=== PATIENT | female | born 1935 | race Caucasian/White ===

== ENCOUNTER 2016-09-28 21:45 | Emergency (ER) | payer OTHER ==
--- NOTE | 2016-09-28 21:53 | ED.PDOC ---
General ED Provider: Dr. GILES FOX Chief Complaint: Altered Mental Status Stated Complaint: Patient was at latter-day, not been by herself. she had similar episode couple days ago, was seen @ [facility]. had heart cath last week. Time Seen by Physician: 21:51 Information Source: Patient Primary Care Provider: SHON LOVE Nursing and Triage Documentation Reviewed and Agree: Yes Neurological Complaint Exam - Altered Mental Status Complaint/Exam Current Mental Status: Confusion Onset: Gradual Symptoms Are: Still present Timing: Constant Episodes Lasting: Minutes Initial Severity: Moderate Current Severity: Moderate Eye Deviation Present: No Character: Reports: Confusion, Responsiveness, Lethargy Aggravating: Reports: None Alleviating: Reports: None Associated Signs and Symptoms: Reports: Weakness. Denies: Dizziness, Headache, Fever, Illness, Nuchal rigidity, Seizure, Nausea, Vomiting, Recently depressed, Trauma Related History: Reports: Similar episode Cardiac Risk Factors: Reports: Hypertension, CAD CVA Risk Factors: Reports: Hypertension, CAD Related Surgical History: Reports: None Carotid Bruit Present: No Nystagmus Present: No Gag Reflex Present: No Meningeal Signs Positive: No Focal Weakness: Present: RLE, LLE Gait: Unable [id number]: Abnormal right, Abnormal left Heel to Toe Normal: No Differential Diagnoses: Metabolic Disorder, Medication reaction, Sepsis, CVA Review of Systems - Review Of Systems Constitutional: Reports: Malaise, Weakness Eyes: Reports: No symptoms Ears, Nose, Mouth, Throat: Reports: No symptoms Respiratory: Reports: No symptoms Cardiac: Reports: No symptoms GI: Reports: No symptoms : Reports: No symptoms Musculoskeletal: Reports: No symptoms Skin: Reports: No symptoms Neurological: Reports: Weakness Endocrine: Reports: No symptoms Hematologic/Lymphatic: Reports: No symptoms All Other Systems: Reviewed and Negative Past Medical History - Past Medical History Previously Healthy: No Endocrine: Reports: None Cardiovascular: Reports: Hypertension Respiratory: Reports: COPD Hematological: Reports: None Gastrointestinal: Reports: GERD Genitourinary: Reports: None Neuro/Psych: Reports: None, Other (bells palsy) Musculoskeletal: Reports: Arthritis, Back Pain Cancer: Reports: None - Surgical History General Surgical History: Reports: Hysterectomy, Tubal ligation, Tonsillectomy, Orthopedic (bilateral knee arthoplasty dr carranza 2011), Other (heart cath 2011 ) - Family History Family History: Reports: None Physical Exam - Physical Exam Appearance: Ill-appearing, Obese Ill-appearing: Moderate Eyes: EOMI, Conjunctiva clear ENT: Ears normal, Nose normal, Oropharynx normal Respiratory: Airway patent, Breath sounds clear, Breath sounds equal, Respirations nonlabored Cardiovascular: RRR, Pulses normal, No rub, No murmur GI/: Soft, Nontender, No masses, Bowel sounds normal, No Organomegaly Musculoskeletal: Normal strength, ROM intact, No edema, No calf tenderness Skin: Warm, Dry, Normal color Neurological: Sensation intact, Disoriented, Focal Deficit (weak lower extremities) Psychiatric: Affect appropriate, Mood appropriate Interpretation - Radiology Interpretation Radiology Interpretation By: Radiologist Radiology Results: Negative Exam Interpreted: CT Scan - EKG Interpretation Time of EKG #1: 21:50 Rate: Normal Rhythm: Sinus Ectopy: None [place]: Left ST Segment: Other (LBBB) Re-Evaluation - Re-Evaluation Time of Re-Evaluation: 00:08 Status: Unchanged Critical Care Note - Critical Care Note Total Time (mins): 0 Course - Course Hematology/Chemistry: 09/28/16 21:54 09/28/16 21:54 Orders, Labs, Meds: Lab Review 09/28/16 09/28/16 09/29/16 21:54 22:00 00:00 WBC 11.82 H RBC 5.66 H Hgb 15.2 Hct 48.3 H MCV 85.3 MCH 26.9 L MCHC 31.5 L RDW Coeff of Alanis 15.0 H Plt Count 299 Immature Gran % (Auto) 0.8 Neut % (Auto) 76.3 Lymph % (Auto) 16.4 [place] % (Auto) 5.5 Eos % (Auto) 0.6 Baso % (Auto) 0.4 Immature Gran # (Auto) 0.1 Neut # 9.0 H Lymph # 1.9 [place] # 0.7 Eos # 0.1 Baso # 0.1 D-Dimer 2.38 Sodium 141 Potassium 4.6 Chloride 97 L Carbon Dioxide 30 Anion Gap 18.6 BUN 37 H Creatinine 1.46 H Estimated GFR (MDRD) 35.00 BUN/Creatinine Ratio 25.34 Glucose 143 H Calcium 10.3 H Total Bilirubin 0.50 AST 16 ALT 18 Alkaline Phosphatase 85 Total Creatine Kinase 17 Troponin I 0.0370 Total Protein 8.3 H Albumin 3.8 Globulin 4.5 Albumin/Globulin Ratio 0.84 Urine Color Yellow Urine Clarity Clear Urine pH 5.0 Ur Specific [place] 1.025 Urine Protein 1+ Urine Glucose (UA) Negative Urine Ketones Trace Urine Blood Negative Urine Nitrite Negative Urine Bilirubin Negative Urine Urobilinogen 0.2 Ur Leukocyte Esterase Negative Ur Squamous Epith Cells 10-20 Amorphous Sediment 3+ Urine Bacteria 1+ Hyaline Casts 5-10 Granular Casts 2-5 Orders Category Date Time Status ABG DRAW REQUEST Stat CARDIO 09/29/16 00:49 Ordered ABG DRAW REQUEST Stat CARDIO 09/29/16 00:49 Ordered EKG-(ED ONLY) Stat CARDIO 09/28/16 21:49 Ordered NEBULIZER TREATMENT Stat CARDIO 09/29/16 00:49 Ordered O2 [ED APPLY O2] .ONCE EMERGENCY 09/29/16 00:50 Active CBC W/ AUTO DIFF Stat LAB 09/28/16 21:54 Completed COMPREHENSIVE METABOLIC PANEL Stat LAB 09/28/16 21:54 Completed CREATINE KINASE Stat LAB 09/28/16 21:54 Completed D-DIMER Stat LAB 09/29/16 00:00 Completed TROPONIN I Stat LAB 09/28/16 21:54 Completed URINALYSIS C & S IF INDICATED Stat LAB 09/28/16 22:00 Completed URINE CULTURE Routine LAB 09/28/16 22:24 Received Dexamethasone 4 mg/ml Inj [Decadron 4 mg/ml Sdv] MEDS 09/29/16 00:49 Discontinued 4 mg IM ONCE STA Ipratropium/Albuterol Neb [Duoneb] MEDS 09/29/16 00:49 Discontinued 1 vial NEB ONCE STA CT HEAD W/O CONTRAST Stat RADS 09/28/16 21:[address] LUMBAR SPINE W/O CONTRAST Stat RADS 09/28/16 21:58 Completed Medications Discontinued Medications Generic Name Dose Route Start Last Admin Trade Name Freq PRN Reason Stop Dose Admin Albuterol/Ipratropium 1 vial 09/29/16 00:49 Duoneb NEB 09/29/16 00:50 ONCE STA Dexamethasone Sodium Phosphate 4 mg 09/29/16 00:49 Decadron 4 Mg/Ml Sdv IM 09/29/16 00:50 ONCE STA Vital Signs: Temp Pulse Resp BP Pulse Ox 09/28/16 21:58 97.9 F 67 20 132/68 93 L Departure - Departure Time of Disposition: : Disposition: TSF OTHER Discharge Problem: Altered mental status Instructions: Altered Mental Status (ED) Condition: Stable Pt referred to PMD for follow-up: Yes Additional Instructions: discussed with Dr Quijano, admit to [facility]. direct admit and neurologist consult Disposition Discussed With: Patient, Family
[2016-09-28 21:59] LABS: BASOPHILS # (AUTO) 0.1 K/uL (0-0.2); BASOPHILS % (AUTO) 0.4 % (0.0-3.0); EOSINOPHILS # (AUTO) 0.1 K/ul (0.0-0.7); EOSINOPHILS % (AUTO) 0.6 % (0.0-7.0); HEMATOCRIT 48.3 % (37.0-47.0); HEMOGLOBIN 15.2 g/dl (12.0-16.0); IMMATURE GRANULOCYTE % (AUTO) 0.8 % (0.0-5.0); LYMPHOCYTES # (AUTO) 1.9 K/uL (0.60-3.4); LYMPHOCYTES % (AUTO) 16.4 (10.0-50.0); MEAN CORPUSCULAR HEMOGLOBIN 26.9 pg (27.0-31.0); MEAN CORPUSCULAR HGB CONC 31.5 (31.8-35.4); MEAN CORPUSCULAR VOLUME 85.3 fl (81.0-99.0); MONOCYTES # (AUTO) 0.7 K/uL (0.4-2.0); MONOCYTES % (AUTO) 5.5 (0-10); NEUTROPHILS % (AUTO) 76.3; PLATELET COUNT 299 10^3/uL (140-440); RED BLOOD COUNT 5.66 10^6/ul (4.20-5.40); WHITE BLOOD COUNT 11.82 K/ul (4.6-10.2)
[2016-09-28 22:10] LABS: BILIRUBIN,URINE Negative (NEGATIVE); KETONES,URINE Trace (NEGATIVE); LEUKOCYTE ESTERASE ,URINE Negative (NEGATIVE); NITRITE,URINE Negative (NEGATIVE); PROTEIN,URINE 1+ (NEGATIVE); URINE, BLOOD Negative (NEGATIVE)
[2016-09-28 22:11] LABS: ADD URINE MICROSCOPIC YES
[2016-09-28 22:16] VITALS: BP 132/68; TEMP 97.9; BMI 35.4
[2016-09-28 22:23] LABS: BACTERIA,URINE 1+ (NOT PRESENT)
[2016-09-28 22:24] LABS: ALBUMIN 3.8 g/dL (3.4-5.0); ALBUMIN/GLOBULIN RATIO 0.84; ANION GAP 18.6; BILIRUBIN,TOTAL 0.5 mg/dL (0.00-1.20); BUN/CREATININE RATIO 25.34; CALCIUM 10.3 mg/dL (8.2-10.2); CREATININE 1.46 mg/dL (0.60-1.30); POTASSIUM 4.6 mmol/L (3.5-5.10); TOTAL PROTEIN 8.3 g/dL (5.8-8.1); TROPONIN I 0.037 ng/ml (0.0000-0.4000)
--- NOTE | 2016-09-28 22:48 | CT ---
EXAM: CT of the head without contrast. HISTORY: Weakness. PROCEDURE: Contiguous axial CT images of the head without contrast. FINDINGS: There is mild diffuse cerebral atrophy. The ventricles and basal cisterns are normal in size and configuration. No evidence of mass or midline shift. No intracranial hemorrhage or eviden ce of large vessel infarct. No extra-axial fluid collection. There are chronic small vessel ischem ic changes in the white matter. The paranasal sinuses and mastoid air cells are well-aerated. Impression: No intracranial hemorrhage or evidence of large vessel infarct. Chronic small vessel ischemic changes. Diffuse cerebral atrophy.
--- NOTE | 2016-09-28 23:09 | CT ---
EXAM: CT scan lumbar spine HISTORY: Weakness COMPARISON: None. FINDINGS: Contiguous axial images were obtained through the lumbar spine utilizing 3-mm collimation . Sagittal and coronal reconstructions were imaged and reviewed.. There is mild dextroscoliosis. Multilevel degenerative disc disease throughout the lumbar spine.. Segmental analysis: T12-L1: Mild spondylitic bulge with facet arthropathy. Central canal and foramen are patent. L1-L2: There is mild spondylitic bulge with mild facet arthropathy. The central canal and foramen are nagel nt. L2-L3: Mild disc bulge with facet arthropathy. The central canal and foramen are patent. L3-L4: There is mild spondylitic bulge with facet arthropathy which mildly narrows the left neural foramen and bilateral lateral recesses. L4-L5: There is concentric disc bulge with facet arthropathy. There is bilateral neural foraminal narrowin g left greater than right. . L5- S1 levels incompletely visualized. There are bilateral pars defects IMPRESSION: Multilevel degenerative disc disease AT L3-L4 there is left neural foraminal and bilateral lateral recess narrowing. L4-L5 there is bilateral neural foraminal narrowing. Incomplete imaging of L5 S1. 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
[2016-09-29] MEDS ORDERED: DECADRON 4 MG/ML SDV IM STA (00:49)
[2016-09-29] MEDS ORDERED: DUONEB NEB STA (00:49)
== END 2016-09-29 01:58 | disposition short-term general hospital (02) ==
LOC: ED 21:45
DX: R41.82 Altered mental status, unspecified (principal); R53.1 Weakness; M54.9 Dorsalgia, unspecified; I10 Essential (primary) hypertension; I25.10 Atherosclerotic heart disease of native coronary artery without angina pectoris
CPT/HCPCS: 36415; 80053; 81001; 82550; 84484; 85025; 85379; 87086; 93005; 93010; 94640; 96360; 96361; 96372; 99285

== ENCOUNTER 2016-09-29 01:56 | Outpatient (CLI) | payer OTHER ==
[2016-09-28 22:16] VITALS: BMI 35.4
== END 2016-09-29 01:57 | disposition home or self-care (01) ==
LOC: AMBL 01:56
PROVIDERS: ATTEND Emergency Medicine
DX: R47.81 Slurred speech (principal); R29.810 Facial weakness; R53.1 Weakness

== ENCOUNTER 2017-01-23 12:45 | Outpatient (CLI) ==
[2017-01-23 13:16] LABS: ANION GAP 15.3; BUN/CREATININE RATIO 26.8; CALCIUM 9.5 mg/dL (8.2-10.2); CREATININE 0.97 mg/dL (0.60-1.30); POTASSIUM 4.3 mmol/L (3.5-5.10)
== END 2017-01-23 12:46 | disposition home or self-care (01) ==
LOC: NONPT 12:45
PROVIDERS: ATTEND Family Medicine
DX: N18.9 Chronic kidney disease, unspecified (principal); I12.9 Hypertensive chronic kidney disease with stage 1 through stage 4 chronic kidney disease, or unspecified chronic kidney disease; I69.322 Dysarthria following cerebral infarction; F32.9 Major depressive disorder, single episode, unspecified
CPT/HCPCS: 80048

== ENCOUNTER 2018-07-14 10:29 | Outpatient (CLI) | payer OTHER | END 2018-07-14 10:30 | disposition home or self-care (01) | LOC: LAB 10:29 | PROVIDERS: ATTEND Family Medicine | DX: I10 Essential (primary) hypertension (principal) | CPT/HCPCS: 36415; 80053; 80061; 81001; 84443; 85025 ==